=== PATIENT | female | born 1950 | race Caucasian/White ===

== ENCOUNTER 2025-01-07 09:58 | Emergency (ER) | payer OTHER ==
--- NOTE | 2025-01-07 12:06 | RAD REPORT ---
EXAMINATION: CT Abdomen Pelvis Wo Contrast CLINICAL INDICATION: Female, 74 years old. NAUSEA / VOMITING TECHNIQUE: CT abdomen and pelvis was performed, without IV contrast, as per department protocol. Axia l, sagittal and coronal reconstructions were obtained. One or more of the following dose reduction techniques were used: Automated exposure control, adjustment of the mA and kV according to the patien t size, and iterative reconstruction. Unless otherwise specified, incidental findings do not require dedicated imaging follow-up. COMPARISON: 04/02/2012 FINDINGS: The lack of intravenous contrast limits the sensitivity of this exam for evaluation of solid visceral organs, vascular structures, and retroperitoneum. LOWER CHEST: The visualized lung bases are clear. LIVER: Normal in size and contour. No focal lesion. BILIARY SYSTEM: Status post cholecystectomy. SPLEEN: Normal size. No focal lesion. PANCREAS: No mass, ductal dilation, or jovana-pancreatic fluid. ADRENALS: Normal; no mass. KIDNEYS AND URETERS: Normal size and contour. Nonobstructing left renal calculi largest at the lower pole measuring 4 mm. Mildly prominent left renal pelvis, stable, however no hydronephrosis. URINARY BLADDER: Normal contour. GASTROINTESTINAL TRACT: No evidence of bowel obstruction, significant free fluid, free air or abscess . Distal colonic diverticulosis. APPENDIX: Appendix not visualized, but no inflammatory changes in region of appendix. LYMPH NODES: No lymphadenopathy. MUSCULOSKELETAL: No acute or suspicious osseous abnormality. ADDITIONAL FINDINGS: None. IMPRESSION: No acute abnormalities in the abdomen or pelvis, with evaluation limited by lack of IV contrast. Essentially stable nonobstructing left renal calculi
[2025-01-07 12:08] LABS: Absolute Lymphocytes (CBC) 1.1 K/uL (0.7-4.9); Hematocrit 42.1 % (36.0-45.0); Hemoglobin 13.6 g/dL (12.0-15.0); MCH 27.5 pg (27.0-35.0); MCHC 32.2 g/dL (32.0-36.0); MCV 85.4 fL (80-100); MPV 7.4 fL (7.6-11.3); Nucleated RBC Absolute Count 0.0 (0-0); Nucleated Red Blood Cells % 0.0 % (0-0); RBC Red Blood Cell Count 4.93 M/uL (3.86-4.86); White Blood Count 15.10 thou/uL (4.3-10.9)
[2025-01-07] MEDS ORDERED: FAMOTIDINE 20 MG/2 ML VIAL IV ONE (12:15)
[2025-01-07] MEDS ORDERED: NA CHLORIDE 0.9% 1,000 ML ONE (12:16)
[2025-01-07 12:25] LABS: AST/SGOT 15 U/L (15-37); Albumin 3.2 g/dL (3.4-5.0); Albumin/Globulin Ratio 0.6 (1.1-1.8); Alkaline Phosphatase 177 U/L (45-117); Anion Gap 10.2 mEq/L (5.0-15.0); BUN Blood Urea Nitrogen 19 mg/dL (7-18); Globulin 5.2 g/dL (2.3-3.5); Glucose Level 211 mg/dL (74-106); Lipase 19 U/L (13-75); Potassium 4.2 mEq/L (3.5-5.1)
[2025-01-07 12:27] LABS: ALT/SGPT < 14 U/L (13-56)
[2025-01-07 13:11] LABS: Anisocytosis SLIGHT; Blood Morphology Comment NOTED (NOT SEEN); Macrocytosis SLIGHT; White Blood Cell Scan OK (OK)
--- NOTE | 2025-01-07 13:18 | ER ---
Nurse's Notes [facility] Name: Elina Kirby Age: 74 yrs Sex: Female : 1950 Arrival Date: 01/07/2025 Time: 09:58 Bed 17 Private MD: Diagnosis: Nausea with vomiting, unspecified;Essential (primary) hypertension;Chronic kidney disease, unspecified Presentation: 01/07 10:10 Chief complaint: EMS states: PT REPORTED SHE TOOK ANTIBIOTIC ON EMPTY STOMACH AND BEGAN dd2 HAVING N/V AT 0430 THIS MORNING. EMS ADMINISTERED 8 MG ZOFRAN WITH NO RELIEF. Coronavirus screen: At this time, the client does not indicate any symptoms associated with coronavirus-19. Ebola Screen: No symptoms or risks identified at this time. Initial Sepsis Screen: Does the patient meet any 2 criteria? No. Patient's initial sepsis screen is negative. Does the patient have a suspected source of infection? No. Patient's initial sepsis screen is negative. Risk Assessment: Do you want to hurt yourself or someone else? Patient reports no desire to harm self or others. Onset of symptoms was January 07, 2025 at 04:30. 10:10 Method Of Arrival: [facility] dd2 10:10 Acuity: NORBERTO 3 dd2 Triage Assessment: 10:16 General: Appears in no apparent distress. uncomfortable, Behavior is cooperative, dd2 appropriate for age, anxious. Pain: Denies pain. EENT: No deficits noted. No signs and/or symptoms were reported regarding the EENT system. Neuro: Level of Consciousness is awake, alert, obeys commands, Oriented to person, place, time, situation, Appropriate for age RT SIDED WEAKNESS R/T PREVIOUS CVA. Cardiovascular: No deficits noted. Respiratory: No deficits noted. Airway is patent Respiratory effort is even, unlabored, Respiratory pattern is regular, symmetrical. GI: Abdomen is non-distended, obese, Bowel sounds present X 4 quads. Abd is soft and non tender X 4 quads. Reports nausea, vomiting. : No signs and/or symptoms were reported regarding the genitourinary system. Derm: Skin is intact, Skin is red, BLE EDEMA BLE. Musculoskeletal: Circulation, motion, and sensation intact. Range of motion: intact in all extremities, Swelling present in right leg and left leg. Historical: - Allergies: 10:16 PENICILLINS; dd2 10:16 Oxycodone; dd2 10:16 Codeine; dd2 10:16 Morphine; dd2 10:16 Dilaudid; dd2 10:16 Fentanyl; dd2 10:16 BETA-ADRENERGIC BLOCKING AGENTS; dd2 10:16 butorphanol; dd2 10:16 Cefpodoxime; dd2 10:16 Ceftriaxone Sodium; dd2 10:16 ceftriaxone; dd2 10:16 Ciprofloxacin; dd2 10:16 Clindamycin; dd2 10:16 Erythromycin; dd2 10:16 Levaquin; dd2 10:16 Plaquenil; dd2 10:16 Rocephin; dd2 10:16 Phenergan; dd2 10:16 Scopolamine HBr; dd2 10:16 Stadol; dd2 - PMHx: 10:16 Cerebrovascular accident; Congestive heart failure; Diabetes mellitus; Hypertensive dd2 disorder; Myocardial infarction; LYMPHEDEMA; - PSHx: 10:16 CARDIAC STENTS; Appendectomy; Total abdominal hysterectomy; Cholecystectomy; dd2 - Immunization history:: Adult Immunizations unknown. - Infectious Disease History:: Denies. - Social history:: Smoking status: Patient denies any tobacco usage or history of. Screenin:12 [facility] ED Fall Risk Assessment (Adult) History of falling in the last 3 months, dd2 including since admission No falls in past 3 months (0 pts) Confusion or Disorientation No (0 pts) Intoxicated or Sedated No (0 pts) Impaired Gait Yes (1 pt) Mobility Assist Device Used Yes (1 pt) Altered Elimination No (0 pt) Score/Fall Risk Level 0 - 2 = Low Risk Oriented to surroundings, Maintained a safe environment, Educated pt \T\ family on fall prevention, incl call for assistance when getting out of bed, Assessed \T\ reinforced patient's understanding of fall precautions, Used ambulatory aids as needed (educated on \T\ assisted with). Abuse screen: Denies threats or abuse. Denies injuries from another. Nutritional screening: No deficits noted. Tuberculosis screening: No symptoms or risk factors identified. Assessment: 10:20 Reassessment: see triage assessment. dd2 12:54 Reassessment: Patient is alert, oriented x 3, equal unlabored respirations, skin dd2 warm/dry/pink. Patient states symptoms have improved. Vital Signs: 10:10 BP 170 / 89; Pulse 92; Resp 17; Temp 97.8(O); Pulse Ox 98% on R/A; Weight 122.47 kg; dd2 Pain 0/10; 10:54 BP 158 / 65; Pulse 87; Resp 17; Pulse Ox 98% ; dd2 11:15 BP 160 / 61; Pulse 87; Resp 18; Pulse Ox 99% on R/A; dd2 11:45 BP 160 / 76; Pulse 88; Resp 18; Pulse Ox 99% on R/A; dd2 12:45 BP 155 / 73; Pulse 83; Resp 17; Pulse Ox 98% on R/A; dd2 13:31 BP 163 / 74; Pulse 87; Resp 18; Pulse Ox 99% on R/A; dd2 10:10 Pain Scale: Adult dd2 ED Course: 10:09 Patient arrived in ED. mb4 10:16 Triage completed. dd2 10:16 Amilcar Ward DO is Attending Physician. ms3 10:16 Arm band placed on right wrist. dd2 10:59 CT Abd/Pelvis - Without Contrast In Process Unspecified. EDMS 11:12 Patient has correct armband on for positive identification. Bed in low position. Call dd2 light in reach. Side rails up X2. Client placed on continuous cardiac and pulse oximetry monitoring. NIBP monitoring applied. Door closed. Noise minimized. Warm blanket given. Pillow given. Verbal reassurance given. 11:12 Patient maintains SpO2 saturation greater than 95% on room air. dd2 11:23 DEBORA RICKETTS, RN is Primary Nurse. dd2 12:30 No provider procedures requiring assistance completed. Accessed peripheral vein via dd2 ultrasound, utilizing dynamic ultrasound technique using 20G Nexia IV catheter per hospital protocol. Clean \T\ dry. Dressing intact. Good blood return. Flushes easily. 12:30 Initial lab(s) drawn, by me, sent to lab. dd2 14:37 Provided Education on: D/C EDUCATION. PT LEFT WITHOUT D/C PAPERS. dd2 14:37 IV discontinued, intact, bleeding controlled, No redness/swelling at site. Pressure dd2 dressing applied. Administered Medications: 12:27 Drug: Famotidine IVP 20 mg IVP once; dilute with 10 mL 0.9% NaCl; give over 2 minutes dd2 Route: IVP; Site: left antecubital; 12:42 Follow up: Response: No adverse reaction dd2 12:27 Drug: NS 0.9% IV 1000 ml IV at 1 bolus Per protocol; to be given as a bolus over 60 dd2 minutes Route: IV; Rate: 1 bolus; Site: left antecubital; 13:32 Follow up: IV Status: Completed infusion dd2 12:27 Not Given (Patient Refused): droperidol1.25 mg IVP once dd2 12:32 Not Given (not available): [id number] mg IVP once dd2 Medication: 14:38 VIS not applicable for this client. dd2 Outcome: 13:17 Discharge ordered by . ms3 14:37 Discharged to home via wheelchair, with family, dd2 14:37 Condition: stable 14:37 Discharge instructions given to patient, family, PT LEFT WITHOUT D/C PAPERS 14:38 Patient left the ED. dd2 Signatures: Dispatcher [employer] EDMS Marina Rodriguez mb4 Amilcar Ward DO DO ms3 DEBORA RICKETTS RN RN dd2 Corrections: (The following items were deleted from the chart) 10:26 10:16 Allergies: tramadol; dd2 dd2 10:26 10:16 PMHx: None; dd2 dd2
--- NOTE | 2025-01-07 13:18 | EDPHYS ---
Physician Documentation [facility] Name: Elina Kirby Age: 74 yrs Sex: Female : 1950 Arrival Date: 01/07/2025 Time: 09:58 Bed 17 Private MD: ED Physician Amilcar Ward HPI: 01/07 14:13 This 74 yrs old Female presents to ER via EMS with complaints of Nausea/Vomiting. ms3 14:13 74-year-old female past medical history of CVA, congestive heart Ferre, diabetes, ms3 hypertension presents to the emergency department for nausea and vomiting began at 11 PM after taking her antibiotic and Parkinson's medication without food. Patient denies blood in her vomit. Patient states her discomfort is a 9/10 described as nausea. Patient states she does have some upper abdominal discomfort.. Historical: - Allergies: 10:16 PENICILLINS; dd2 10:16 Oxycodone; dd2 10:16 Codeine; dd2 10:16 Morphine; dd2 10:16 Dilaudid; dd2 10:16 Fentanyl; dd2 10:16 BETA-ADRENERGIC BLOCKING AGENTS; dd2 10:16 butorphanol; dd2 10:16 Cefpodoxime; dd2 10:16 Ceftriaxone Sodium; dd2 10:16 ceftriaxone; dd2 10:16 Ciprofloxacin; dd2 10:16 Clindamycin; dd2 10:16 Erythromycin; dd2 10:16 Levaquin; dd2 10:16 Plaquenil; dd2 10:16 Rocephin; dd2 10:16 Phenergan; dd2 10:16 Scopolamine HBr; dd2 10:16 Stadol; dd2 - PMHx: 10:16 Cerebrovascular accident; Congestive heart failure; Diabetes mellitus; Hypertensive dd2 disorder; Myocardial infarction; LYMPHEDEMA; - PSHx: 10:16 CARDIAC STENTS; Appendectomy; Total abdominal hysterectomy; Cholecystectomy; dd2 - Immunization history:: Adult Immunizations unknown. - Infectious Disease History:: Denies. - Social history:: Smoking status: Patient denies any tobacco usage or history of. ROS: 14:13 Constitutional: Negative for fever, and chills. Cardiovascular: Negative for chest ms3 pain, and palpitations. Respiratory: Negative for shortness of breath, cough, wheezing, and pleuritic chest pain, MS/Extremity: Negative for injury and deformity, 14:13 Abdomen/GI: Positive for abdominal pain, nausea and vomiting, Exam: 14:13 Constitutional: This is a well developed, well nourished patient who is awake, alert, ms3 and in no acute distress. Cardiovascular: Regular rate and rhythm with a normal S1 and S2. No gallops, murmurs, or rubs. Normal PMI, no JVD. No pulse deficits. Respiratory: Lungs have equal breath sounds bilaterally, clear to auscultation and percussion. No rales, rhonchi or wheezes noted. No increased work of breathing, no retractions or nasal flaring. 14:13 Skin: Warm, dry with normal turgor. Normal color with no rashes, no lesions, and no evidence of cellulitis. MS/ Extremity: Pulses equal, no cyanosis. Neurovascular intact. Full, normal range of motion. 14:13 Abdomen/GI: Inspection: abdomen appears normal, Bowel sounds: normal, in all quadrants, Palpation: mild abdominal tenderness, in the right upper quadrant and left upper quadrant, Vital Signs: 10:10 BP 170 / 89; Pulse 92; Resp 17; Temp 97.8(O); Pulse Ox 98% on R/A; Weight 122.47 kg; dd2 Pain 0/10; 10:54 BP 158 / 65; Pulse 87; Resp 17; Pulse Ox 98% ; dd2 11:15 BP 160 / 61; Pulse 87; Resp 18; Pulse Ox 99% on R/A; dd2 11:45 BP 160 / 76; Pulse 88; Resp 18; Pulse Ox 99% on R/A; dd2 12:45 BP 155 / 73; Pulse 83; Resp 17; Pulse Ox 98% on R/A; dd2 13:31 BP 163 / 74; Pulse 87; Resp 18; Pulse Ox 99% on R/A; dd2 10:10 Pain Scale: Adult dd2 MDM: 10:35 Medical Screening Exam initiated ms3 14:13 Differential diagnosis: Nonspecific abd pain, gastritis, Hypertension. Data reviewed: ms3 vital signs, nurses notes, lab test result(s), radiologic studies, and as a result, I will discharge patient. I considered the following discharge prescriptions or medication management in the emergency department Medications were administered in the Emergency Department. See MAR. Counseling: I had a detailed discussion with the patient and/or guardian regarding the historical points, exam findings, and any diagnostic results supporting the discharge/admit diagnosis, lab results, radiology results, the need for outpatient follow up, to return to the emergency department if symptoms worsen or persist or if there are any questions or concerns that arise at home. Special discussion: I discussed with the patient/guardian in detail that at this point there is no indication for admission to the hospital. It is understood, however, that if the symptoms persist or worsen the patient needs to return immediately for re-evaluation. ED course: Discussed labs, CT imaging with patient. Patient to follow-up with primary care physician 2 to 3 days. All questions were answered. Return precautions were discussed include worsening symptoms, or any other concerns. On reevaluation patient is improved, alert and oriented x 4, no apparent distress, nontoxic-appearing, speaking full sentences, abdomen benign, tolerating p.o.. 01/07 10:38 Order name: CBC with Diff; Complete Time: 13:13 ms3 01/07 10:38 Order name: CMP; Complete Time: 12:53 ms3 01/07 10:38 Order name: Lipase; Complete Time: 12:53 ms3 01/07 12:13 Order name: CBC Smear Scan; Complete Time: 13:13 EDMS 01/07 10:38 Order name: CT Abd/Pelvis - Without Contrast; Complete Time: 12:21 ms3 01/07 10:38 Order name: IV Saline Lock; Complete Time: 12:30 ms3 01/07 10:38 Order name: Labs collected and sent; Complete Time: 12:30 ms3 Administered Medications: 12:27 Drug: Famotidine IVP 20 mg IVP once; dilute with 10 mL 0.9% NaCl; give over 2 minutes dd2 Route: IVP; Site: left antecubital; 12:42 Follow up: Response: No adverse reaction dd2 12:27 Drug: NS 0.9% IV 1000 ml IV at 1 bolus Per protocol; to be given as a bolus over 60 dd2 minutes Route: IV; Rate: 1 bolus; Site: left antecubital; 13:32 Follow up: IV Status: Completed infusion dd2 12:27 Not Given (Patient Refused): droperidol1.25 mg IVP once dd2 12:32 Not Given (not available): [id number] mg IVP once dd2 Disposition Summary: 01/07/25 13:17 Discharge Ordered Notes: Location: Home ms3 Condition: Stable ms3 Diagnosis - Nausea with vomiting, unspecified ms3 - Essential (primary) hypertension ms3 - Chronic kidney disease, unspecified ms3 Followup: ms3 - With: Private Physician - When: 2 - 3 days - Reason: Recheck today's complaints Discharge Instructions: - Discharge Summary Sheet ms3 - Hypertension, Adult ms3 - Nausea and Vomiting, Adult ms3 Forms: - Medication Reconciliation Form ms3 - Antibiotic Education ms3 - Prescription Opioid Use ms3 - Patient Portal Instructions ms3 - Leadership Thank You Letter ms3 Signatures: Dispatcher [employer] EDAmilcar Matthew, DO ms3 DEBORA RICKETTS RN RN dd2 Corrections: (The following items were deleted from the chart) 10: 10:16 Allergies: tramadol; dd2 dd2 10: 10:16 PMHx: None; dd2 dd2
[2025-01-07 19:25] VITALS: TEMP 97.8
[2025-01-07 19:31] VITALS: BP 163/74; O2SAT 99
== END 2025-01-07 14:38 | disposition home or self-care (01) ==
LOC: ER 09:58
DX: R11.2 Nausea with vomiting, unspecified (principal); E11.22 Type 2 diabetes mellitus with diabetic chronic kidney disease; I13.0 Hypertensive heart and chronic kidney disease with heart failure and stage 1 through stage 4 chronic kidney disease, or unspecified chronic kidney disease; N18.9 Chronic kidney disease, unspecified; I50.9 Heart failure, unspecified; Z95.818 Presence of other cardiac implants and grafts
CPT/HCPCS: 96361; 85025; 36415; 83690; 80053; 74176; 96374; 99285; J7030